=== PATIENT | male | born 1985 | race Caucasian/White ===

== ENCOUNTER 2017-05-07 02:42 | Emergency (ER) | payer SELFPAY ==
[~2017-05-07] VITALS: Ht 188 cm; Wt 90.9 kg
[~2017-05-07 02:42] MED LIST: INVANZ1 GM IV
[2017-05-07 03:59] LABS: URINE BILIRUBIN - DIPSTICK NEGATIVE (NEGATIVE); URINE BLOOD DIPSTICK NEGATIVE (NEGATIVE); URINE CLARITY CLEAR; URINE COLOR YELLOW; URINE GLUCOSE - DIPSTICK NEGATIVE (NEGATIVE); URINE KETONE NEGATIVE (NEGATIVE); URINE LEUK ESTERASE NEGATIVE (NEGATIVE); URINE NITRITE - DIPSTICK NEGATIVE (Negative); URINE PH 5.5 (4.5-8.0); URINE PROTEIN - DIPSTICK NEGATIVE (NEG-TRACE); URINE SPECIFIC GRAVITY 1.025; URINE UROBILINOGEN - DIPSTICK 0.2 E.U./dL (0.2)
[2017-05-07 04:00] LABS: HEMATOCRIT 42.9 % (39.0-50.0); HEMOGLOBIN 14.8 g/dl (14.0-18.0); IMMATURE GRANULOCYTES 0.3 % (0.0-1.0); MEAN CELL VOLUME 95.3 fL CALC (80.0-100.0); MEAN CORPUSCULAR HGB 32.9 pG CALC (26.0-32.0); MEAN CORPUSCULAR HGB CONC 34.5 g/L CALC (32.0-36.0); NEUT# 2.1 thou/uL (1.82-7.42); RED BLOOD COUNT 4.5 mill/uL (4.70-6.10); RED CELL DISTRI WIDTH 14.6 % (11.5-15.5)
[2017-05-07 04:09] LABS: ALBUMIN 4.4 g/dL (3.2-5.0); ALKALINE PHOSPHATASE 54 u/l (38-126); AMYLASE 70 u/l (30-110); ANION GAP 17 (6-22 (CALC)); BILIRUBIN, TOTAL 0.4 mg/dL (0.0-1.4); BUN 17 mg/dL (9-20); BUN/CREATININE RATIO 18 (12-20 (CALC)); CARBON DIOXIDE 29 mmol/l (22-30); CHLORIDE 104 mmol/l (95-108); GFR > 60 ML/MIN (>=60 (CALC)); GFR FOR AFR.AMER. > 60 ML/MIN (>=60 (CALC)); GLUCOSE 97 mg/dL (75-110); LIPASE 129 u/l (23-300); POTASSIUM 3.9 mmol/l (3.5-5.1); SGOT/AST 36 u/l (17-59); SGPT/ALT 32 u/l (21-72); SODIUM 146 mmol/l (137-146); TOTAL PROTEIN 7.5 g/dL (6.3-8.2)
[2017-05-07] MEDS ORDERED: NAPROSYN500 MG PO (05:04)
[2017-05-07] MEDS ORDERED: ZOFRAN ODT4 MG PO (05:04)
[2017-05-07 05:14] VITALS: BP 127/79
== END 2017-05-07 05:16 | disposition home or self-care (01) | DRG 605 ==
LOC: ED 02:42
PROVIDERS: Emergency Medicine
DX: S30.1XXA Contusion of abdominal wall, initial encounter (principal); F31.9 Bipolar disorder, unspecified; G40.909 Epilepsy, unspecified, not intractable, without status epilepticus; F17.210 Nicotine dependence, cigarettes, uncomplicated; X58.XXXA Exposure to other specified factors, initial encounter
CPT/HCPCS: Q9967

== ENCOUNTER 2017-07-26 14:28 | Emergency (ER) | payer SELFPAY ==
[~2017-07-26] VITALS: Ht 188 cm; Wt 110.0 kg
[~2017-07-26 14:28] MED LIST changes: +NAPROSYN500 MG PO; +ZOFRAN ODT4 MG PO
[2017-07-26 15:12] LABS: HEMATOCRIT 44.1 % (39.0-50.0); HEMOGLOBIN 15.6 g/dl (14.0-18.0); IMMATURE GRANULOCYTES 0.2 % (0.0-1.0); MEAN CELL VOLUME 98.4 fL CALC (80.0-100.0); MEAN CORPUSCULAR HGB 34.8 pG CALC (26.0-32.0); MEAN CORPUSCULAR HGB CONC 35.4 g/L CALC (32.0-36.0); NEUT# 1.75 thou/uL (1.82-7.42); RED BLOOD COUNT 4.48 mill/uL (4.70-6.10); RED CELL DISTRI WIDTH 15.3 % (11.5-15.5)
[2017-07-26] MEDS ORDERED: TYLENOL PM PO (15:26)
[2017-07-26 15:34] LABS: INTERNATIONAL NORMALIZED RATIO 1.1 RATIO (0.7-1.3); PROTHROMBIN TIME 12.1 SECONDS (9.0-12.5)
[2017-07-26 15:40] LABS: ALBUMIN 4.6 g/dL (3.2-5.0); ALKALINE PHOSPHATASE 111 u/l (38-126); ANION GAP 24 (6-22 (CALC)); BILIRUBIN, TOTAL 1.1 mg/dL (0.0-1.4); BUN 13 mg/dL (9-20); BUN/CREATININE RATIO 16 (12-20 (CALC)); CALCIUM 8.8 mg/dL (8.4-10.2); CARBON DIOXIDE 20 mmol/l (22-30); CHLORIDE 103 mmol/l (95-108); CREATININE 0.8 mg/dL (0.7-1.3); GFR > 60 ML/MIN (>=60 (CALC)); GFR FOR AFR.AMER. > 60 ML/MIN (>=60 (CALC)); GLUCOSE 100 mg/dL (75-110); POTASSIUM 4.3 mmol/l (3.5-5.1); SGOT/AST 194 u/l (17-59); SGPT/ALT 97 u/l (21-72); SODIUM 142 mmol/l (137-146); TOTAL PROTEIN 7.7 g/dL (6.3-8.2)
[2017-07-26 16:16] VITALS: BP 147/97
== END 2017-07-26 16:15 | disposition left against medical advice (07) | DRG 101 ==
LOC: ED 14:28
PROVIDERS: Family Medicine
DX: R56.9 Unspecified convulsions (principal); F17.210 Nicotine dependence, cigarettes, uncomplicated; R53.1 Weakness; R51 Headache; Z72.89 Other problems related to lifestyle; Z91.19 Patient's noncompliance with other medical treatment and regimen

== ENCOUNTER 2018-07-20 15:36 | Emergency (ER) | payer SELFPAY ==
[~2018-07-20] VITALS: Ht 188 cm; Wt 90.9 kg
[~2018-07-20 15:36] MED LIST changes: +TYLENOL PM PO
[2018-07-20] MEDS ORDERED: DOXYCYC MONO100 M2 PO ×2 (15:55→16:07)
[2018-07-20 16:05] VITALS: BP 128/83
== END 2018-07-20 16:05 | disposition home or self-care (01) | DRG 607 ==
LOC: ED 15:36
DX: L73.9 Follicular disorder, unspecified (principal); G40.909 Epilepsy, unspecified, not intractable, without status epilepticus; F17.210 Nicotine dependence, cigarettes, uncomplicated

== ENCOUNTER 2019-04-19 06:34 | Emergency (ER) | payer SELFPAY ==
[~2019-04-19] VITALS: Ht 188 cm; Wt 90.9 kg
[~2019-04-19 06:34] MED LIST changes: +DOXYCYC MONO100 M2 PO
[2019-04-19] MEDS ORDERED: ZONISAMIDE100 MG PO (07:17)
[2019-04-19] MEDS ORDERED: AMBIEN5 MG PO (07:18)
[2019-04-19] MEDS ORDERED: FLEXERIL PO (08:22)
[2019-04-19] MEDS ORDERED: NAPROSYN500 MG PO (08:22)
[2019-04-19] MEDS ORDERED: AMOXICILLIN500 MG PO (08:22)
[2019-04-19 08:37] VITALS: BP 128/76
== END 2019-04-19 08:37 | disposition home or self-care (01) | DRG 605 ==
LOC: ED 06:34
DX: S80.812A Abrasion, left lower leg, initial encounter (principal); S33.5XXA Sprain of ligaments of lumbar spine, initial encounter; L03.116 Cellulitis of left lower limb; F17.210 Nicotine dependence, cigarettes, uncomplicated; W01.0XXA Fall on same level from slipping, tripping and stumbling without subsequent striking against object, initial encounter; Y93.89 Activity, other specified; Y92.89 Other specified places as the place of occurrence of the external cause

== ENCOUNTER 2019-12-03 | Emergency (ER) | payer MEDICARE ==
[~2019-12-03] MED LIST changes: +AMBIEN5 MG PO; +AMOXICILLIN500 MG PO; +FLEXERIL PO; +ZONISAMIDE100 MG PO
[2019-12-03] MEDS ORDERED: SODIUM BICAR325 MG PO (18:06)
[2019-12-03] MEDS ORDERED: CONSTULOSE10 GM/15 M PO (18:07)
[2019-12-03] MEDS ORDERED: [UNRECOGNIZED DRUG - OTHER] PO (18:10)
[2019-12-03] MEDS ORDERED: NADOLOL PO (18:10)
[2019-12-03] MEDS ORDERED: MIDODRINE HYDRO10 MG PO (18:12)
[2019-12-03] MEDS ORDERED: PROPRANOLOL HCL20 MG PO (18:14)
[2019-12-03 18:19] LABS: IMMATURE GRANULOCYTES 0.8 % (0.0-5.0); MEAN CELL VOLUME 95.4 fL CALC (80.0-100.0); MEAN CORPUSCULAR HGB 33.9 pG CALC (26.0-32.0); MEAN CORPUSCULAR HGB CONC 35.5 g/L CALC (32.0-36.0); NEUT# 10.42 thou/uL (1.82-7.42); RED BLOOD COUNT 2.39 mill/uL (4.70-6.10); RED CELL DISTRI WIDTH 15.7 % (11.5-15.5)
[2019-12-03 18:21] LABS: HEMATOCRIT 22.8 % (39.0-50.0); HEMOGLOBIN 8.1 g/dl (14.0-18.0)
[2019-12-03 18:32] LABS: ACT PARTIAL THROMBO TIME 35.7 SECONDS (20.0-32.5); TOTAL PROTEIN 6.5 g/dL (6.3-8.2)
[2019-12-03 18:37] LABS: ALBUMIN 2.6 g/dL (3.2-5.0); CREATININE 3.3 mg/dL (0.7-1.3); POTASSIUM 2.4 mmol/l (3.5-5.1)
[2019-12-03 18:38] LABS: BILIRUBIN, TOTAL 21.4 mg/dL (0.0-1.4); INTERNATIONAL NORMALIZED RATIO 2.1 RATIO (0.7-1.3); PROTHROMBIN TIME 20.9 SECONDS (9.0-12.5)
[2019-12-03 20:32] LABS: URINE BILIRUBIN - DIPSTICK LARGE (NEGATIVE); URINE BLOOD DIPSTICK NEGATIVE (NEGATIVE); URINE COLOR YELLOW; URINE GLUCOSE - DIPSTICK NEGATIVE (NEGATIVE); URINE KETONE NEGATIVE (NEGATIVE); URINE LEUK ESTERASE NEGATIVE (NEGATIVE); URINE NITRITE - DIPSTICK NEGATIVE (Negative); URINE PROTEIN - DIPSTICK NEGATIVE (NEG-TRACE); URINE SPECIFIC GRAVITY <=1.005; URINE UROBILINOGEN - DIPSTICK 0.2 E.U./dL (0.2)
== END 2019-12-04 01:20 | disposition short-term general hospital (02) ==
PROVIDERS: Emergency Medicine
DX: K72.90 Hepatic failure, unspecified without coma (principal); N18.6 End stage renal disease; E87.6 Hypokalemia; F17.210 Nicotine dependence, cigarettes, uncomplicated

== ENCOUNTER 2021-01-17 | Emergency (ER) | payer MEDICARE ==
[~2021-01-17] MED LIST changes: +CONSTULOSE10 GM/15 M PO; +MIDODRINE HYDRO10 MG PO; +NADOLOL PO; +PROPRANOLOL HCL20 MG PO; +SODIUM BICAR325 MG PO; +[UNRECOGNIZED DRUG - OTHER] PO
[2021-01-17] MEDS ORDERED: CEPHALEXIN500 M1 PO (17:45)
== END 2021-01-17 18:00 | disposition home or self-care (01) ==
DX: S91.212A Laceration without foreign body of left great toe with damage to nail, initial encounter (principal); N18.6 End stage renal disease; K72.90 Hepatic failure, unspecified without coma; G40.909 Epilepsy, unspecified, not intractable, without status epilepticus; F17.200 Nicotine dependence, unspecified, uncomplicated; W22.8XXA Striking against or struck by other objects, initial encounter

== ENCOUNTER → 2021-08-29 | Day surgery (SDC) | payer MEDICARE ==
[~2021-08-29] VITALS: Ht 188 cm; Wt 83.9 kg
[~2021-08-29] MED LIST changes: +ACIDOPHILU4 PO; +CEPHALEXIN500 M1 PO; +MEDICAL MARIJUANA
[2021-08-29 11:16] VITALS: BP 102/58
== END | disposition home or self-care (01) ==
LOC: ORM 08:00 → ENDO 08:19 → ORM 08:45
PROVIDERS: ATTEND Surgery
PROC: 0DJD8ZZ Inspection of Lower Intestinal Tract, Via Natural or Artificial Opening Endoscopic (ICD-10-PCS; principal; 2021-08-29)
DX: Z43.3 Encounter for attention to colostomy (principal); K70.30 Alcoholic cirrhosis of liver without ascites; F10.11 Alcohol abuse, in remission